=== PATIENT | female | born 1965 | race Caucasian/White ===

== ENCOUNTER 2017-03-28 05:42 | Emergency (ER) | payer OTHER ==
[~2017-03-28] VITALS: Ht 149.9 cm; Wt 87.5 kg
[2017-03-28 05:58] VITALS: BP 153/95
--- NOTE | 2017-03-28 06:05 | ER.PDOC ---
General Chief Complaint: Requesting Medical Care Stated Complaint: HAND WRIST & ELBOW PAIN,POSS FLU Time seen by MD: 05:57 Source: patient Exam Limitations: no limitations History of Present Illness Occurred: other (03/12) Where: street (Patient fell at [employer]) Severity: mild Injuries/Pain Location: upper extremity Context: Tripped Loss of Consciousness: No Loss of Consciousness Modifying Factors: improves with movement Associated Symptoms: denies symptoms Review of Systems Constitutional: no symptoms reported Eyes: no symptoms reported Ears, Nose, Mouth, Throat: no symptoms reported Respiratory: cough Cardiovascular: no symptoms reported Gastrointestinal: no symptoms reported Genitourinary: no symptoms reported Musculoskeletal: joint pain Skin: no symptoms reported Psychiatric/Neurological: no symptoms reported All Other Systems: Reviewed and Negative Physical Exam General Appearance: No Apparent Distress, WD/WN, Obese Eyes: bilateral eye normal inspection Ears, Nose, Mouth, Throat: Hearing Grossly Normal, No Evidence of ENT Injury, No Dental Injury Neck: Non-Tender Cardiovascular/Respiratory: Regular Rate, Rhythm, No M/R/G, Other (Dry Cough) Gastrointestinal: Normal Bowel Sounds, Non Tender Back: Normal Inspection, No Vertebral Tenderness Extremities: Other (Sl pain with ROM of right and left elbow and right wrist. No gross swelling or deformity) Neurologic/Psychiatric: drill press hand II-XII NML as Tested Skin: Normal Color, Warm/Dry Progress Progress No change in patients exam. Explained xr results EKG/XRAY/CT/US XRAY: Departure Time of Disposition: 06:29 Disposition: 01 HOME, SELF-CARE Impression: Primary Impression: Right elbow pain Additional Impressions: Left elbow pain Right wrist pain Condition: Stable Patient Instructions: Joint Sprain Referrals: PCP,UNKNOWN (PCP) PRIMARY CARE PROVIDER Duration or Time Spent with Pa: TEODORO GODFREY MD Mar 28, 2017 06:05
--- NOTE | 2017-03-28 06:35 | DIREP ---
PROCEDURE:XRAY WRIST MIN 3VW-RT COMPARISON:None. INDICATIONS:fall FINDINGS: BONES:Normal. JOINTS:Normal. SOFT TISSUES:Normal. OTHER:No additional findings. CONCLUSION: 1. No acute cardiopulmonary abnormality. Dictated by: Kwadwo Restrepo Jr. on 03/28/2017 at 06:34 AM
--- NOTE | 2017-03-28 06:36 | DIREP ---
PROCEDURE:XRAY ELBOW 2VWS-RT COMPARISON:None. INDICATIONS:fall FINDINGS: BONES:Normal. JOINTS:Normal. No displaced anterior or posterior fat pads. SOFT TISSUES:Normal. OTHER:Normal. CONCLUSION: 1. No diagnostic abnormality Dictated by: Kwadwo Restrepo Jr. on 03/28/2017 at 06:35 AM
--- NOTE | 2017-03-28 06:36 | DIREP ---
PROCEDURE:XRAY ELBOW 2VWS-LT COMPARISON:None. INDICATIONS:fall FINDINGS: BONES:Normal. JOINTS:Normal. No displaced anterior or posterior fat pads. SOFT TISSUES:Normal. OTHER:Normal. CONCLUSION:Normal examination. Dictated by: Kwadwo Restrepo Jr. on 03/28/2017 at 06:35 AM
[2017-03-28 06:57] VITALS: BP 153/95
== END 2017-03-28 06:45 | disposition home or self-care (01) ==
LOC: ER 05:42
DX: M25.521 Pain in right elbow (principal); M25.522 Pain in left elbow; M25.531 Pain in right wrist; R05 Cough; W01.0XXA Fall on same level from slipping, tripping and stumbling without subsequent striking against object, initial encounter; Y93.89 Activity, other specified; Y92.242 Post office as the place of occurrence of the external cause; Y99.8 Other external cause status
CPT/HCPCS: 99284; 73070-LT; 73070-RT; 73110-RT

== ENCOUNTER 2017-07-17 01:04 | Emergency (ER) | payer OTHER ==
[~2017-07-17] VITALS: Ht 149.9 cm; Wt 86.2 kg
[2017-07-17 01:10] VITALS: BP 161/78
--- NOTE | 2017-07-17 01:10 | NUR ---
ARRIVAL PT ARRIVED VIA WHEELCHAIR TO ER 2 WITH C/O ANKLE INJURY. STATES [place]ING IN [place]ARD[place] IN THE EVENING AND STEPPED IN A HOLE. STATES "PAIN JUST WOULDN'T GO AWAY AND KEPT GETTING WORSE. THE SWELLING STARTED AND THE PAIN GOES UP TO MY KNEE NOW." PT IS NOT IN ACUTE DISTRESS AT THIS TIME. EDP NOTIFIED OF ARRIVAL.
[2017-07-17] MEDS ORDERED: TORADOL IM STA (01:20)
[2017-07-17] MEDS ORDERED: TORADOL ONE (01:22)
--- NOTE | 2017-07-17 01:23 | ER.PDOC ---
General Chief Complaint: Extremities Stated Complaint: ANKLE INJURY Time seen by MD: 01:21 Source: patient Exam Limitations: no limitations History of Present Illness Initial Comments Left ankle pain since last night Severity: moderate Context: twist Modifying Factors: pain on movement Allergies: Coded Allergies: Penicillins (Unverified Allergy, Unknown, HIVES, 07/17/17) Past Medical History Medical History: COPD, diabetes Surgical History: , hysterectomy LMP (females 10-50): hysterectomy Social History Smoking: cigarettes, less than 1 pack/day Alcohol Use: none Drug Use: none Review of Systems Constitutional: no symptoms reported EENTM: no symptoms reported Respiratory: no symptoms reported Cardiovascular: no symptoms reported Gastrointestinal: no symptoms reported Musculoskeletal: see HPI All Other Systems: Reviewed and Negative Physical Exam General Appearance: Alert, No Apparent Distress Foot: nml inspection, non-tender Ankle: tenderness (left ankle), swelling (left ankle) Gait: limited by pain Neuro: sensation nml, motor nml Vascular: no vascular compromise Tendons: tendon function nml Leg/Knee/Thigh: uninjured above ankle Skin: warm/dry Head/ENT: nml inspection, pharynx nml Neck/Back: nml inspection, non-tender Resp/CVS: no resp distress Abdomen: non-tender, no organomegaly Results/Orders Results/Orders Administered Medications Medications (Trade) Dose Ordered Sig/Sara Route PRN Reason Start Time Stop Time Status Last Admin Dose Admin Ketorolac Tromethamine (Toradol) 60 mg STAT STAT IM 07/17/17 01:20 07/17/17 01:21 DC 07/17/17 01:28 EKG/XRAY/CT/US XRAY Comments: No acute bony abnormality of left ankle Departure Time of Disposition: 01:40 Disposition: 01 HOME, SELF-CARE Impression: Primary Impression: Left ankle sprain Condition: Stable Referrals: PCP,UNKNOWN (PCP) PRIMARY CARE PROVIDER Additional Instructions: Ice Ibuprofen Tramadol F/U with Dr. King next week Rest home today and return to work tomorrow Duration or Time Spent with Pa: 30 mins Problem Qualifiers Primary Impression: Left ankle sprain Encounter type: initial encounter Involved ligament of ankle: unspecified ligament Qualified Codes: S93.402A - Sprain of unspecified ligament of left ankle, initial encounter TESSIE CLARK MD July 17, 2017 01:22
--- NOTE | 2017-07-17 01:29 | NUR ---
ARAMIS ARAGON IN ROOM WITH PORTABLE AT THIS TIME.
[2017-07-17 02:04] VITALS: BP 161/78
--- NOTE | 2017-07-17 02:08 | DIREP ---
PROCEDURE:XRAY ANKLE MIN 3VWS-LT COMPARISON:None. INDICATIONS:pain FINDINGS: BONES:There is a step-off in the distal lateral malleolus tip only seen on the AP view, questionable minimally displaced fracture. JOINTS:Normal. SOFT TISSUES:Soft tissue swelling. OTHER:No additional findings. CONCLUSION:Questionable minimally displaced fracture of the distal tip of the lateral malleolus. Soft tissue swelling . Dictated by: Rm Dawson MD on 07/17/2017 at 02:05 AM
== END 2017-07-17 01:59 | disposition home or self-care (01) ==
LOC: ER 01:04
DX: S93.402A Sprain of unspecified ligament of left ankle, initial encounter (principal); E11.9 Type 2 diabetes mellitus without complications; J44.9 Chronic obstructive pulmonary disease, unspecified; Z88.0 Allergy status to penicillin; Z90.710 Acquired absence of both cervix and uterus; X50.1XXA Overexertion from prolonged static or awkward postures, initial encounter; Y93.89 Activity, other specified; Y92.89 Other specified places as the place of occurrence of the external cause; Y99.8 Other external cause status
CPT/HCPCS: 73610; 96372; 99284; J1885